=== PATIENT | female | born 1955 | race Caucasian/White ===

== ENCOUNTER 2021-03-29 17:55 | Inpatient (IN) | payer MEDICARE, OTHER ==
[~2021-03-29] VITALS: Ht 167.6 cm; Wt 101.2 kg
[2021-03-29 17:50] VITALS: BP 133/74
[2021-03-29 19:41] VITALS: BP 94/41
[2021-03-29] MEDS ORDERED: RANO500T2 PO (21:07)
[2021-03-29] MEDS ORDERED: CLOP75TA PO (21:07)
[2021-03-29] MEDS ORDERED: ISOS20TA4 PO (21:07)
[2021-03-29] MEDS ORDERED: ATOR10TA60 PO (21:07)
[2021-03-29] MEDS ORDERED: POTA20TA4 PO (21:07)
[2021-03-29] MEDS ORDERED: NITR0.4T22 SL (21:07)
[2021-03-29] MEDS ORDERED: LIDO700A21 TP (21:07)
[2021-03-29] MEDS ORDERED: TORS10TA3 PO (21:07)
[2021-03-29] MEDS ORDERED: METO-239 PO (21:07)
[2021-03-29 23:55] VITALS: BP 84/50
[2021-03-30] MEDS ORDERED: 0.9 % SODIUM CHLORIDE 10 ML DISP.SYRIN. IV PRN (02:30)
[2021-03-30] MEDS ORDERED: ONDANSETRON PF 4 MG/2 ML VIAL. IVP PRN (02:30)
[2021-03-30] MEDS ORDERED: DEXTROSE 50% 25 GM / 50ML DISP.SYRIN. IV PRN (02:45)
[2021-03-30 03:06] VITALS: BP 90/44
[2021-03-30 07:00] VITALS: BP 92/43
[2021-03-30] MEDS: INSULIN LISPRO 300 UNITS/3 ML VIAL. SQ SCH ×4 (07:30→20:52)
[2021-03-30 08:14] LABS: HEMATOCRIT 42.7 % (36.0-47.0); HEMOGLOBIN 14.7 g/dL (12.0-15.5); RED BLOOD COUNT 4.71 x10^6/uL (3.50-5.40); RED CELL DISTRIBUTION WIDTH 13.5 % (11.5-14.5); WHITE BLOOD COUNT 9.4 x10^3/uL (4.0-11.0)
[2021-03-30 08:42] LABS: CALCIUM 9.2 mg/dL (8.5-10.1); CREATININE 0.9 mg/dL (0.6-1.0); POTASSIUM 4.1 mmol/L (3.5-5.1)
[2021-03-30 11:00] VITALS: BP 70/59
[2021-03-30] MEDS ORDERED: METOPROLOL SUCC 24HR ER 25 MG TAB.ER.24H. PO SCH (11:00)
[2021-03-30] MEDS: RANOLAZINE 500 MG TAB.ER.12H PO SCH ×2 (11:21→20:57)
[2021-03-30] MEDS: CLOPIDOGREL BISULFATE 75 MG TABLET PO SCH (11:21)
[2021-03-30] MEDS ORDERED: IV NORMAL SALINE 500ML BAG 500 ML IV ONE (12:15)
--- NOTE | 2021-03-30 12:18 | PN ---
DATE: 03/30/2021 SUBJECTIVE: The patient is resting slightly propped up in bed, in no apparent distress. She was transferred yesterday from [facility] Emergency Room where she presented with feeling dizzy, had left-sided chest pain, shortness of breath. Her first set of cardiac enzymes showed troponin to be 0.031. Her EKG showed that she was in sinus bradycardia without any ST segment elevation. When I questioned her today, she denied any dizziness or chest pain, although she continued to have shortness of breath. PHYSICAL EXAMINATION: GENERAL: When I examined her, she looked pale, but no jaundice, cyanosis or thyromegaly. No jugular venous distention. No limb edema. VITAL SIGNS: Her heart rate was 47, blood pressure was 92/43, temperature was 95.7, respiratory rate was 18 and oxygen saturation was 100% on room air. HEAD, EYES, EARS, NOSE, AND THROAT: Normocephalic, atraumatic. NECK: Supple. HEART: Showed normal first and second heart sounds, no gallop, rub or murmur. CHEST: Clear to auscultation. No crepitation or rhonchi. ABDOMEN: Distended, soft, nontender. NEUROLOGIC: She is awake, alert, responding appropriately. Cranial nerves intact. She moves extremities without difficulty. LABORATORY DATA: This morning showed a white cell count 9400, hemoglobin 14, hematocrit 42, MCV 91, and platelet count of 220,000. Her chemistry showed a serum sodium 141, potassium 4.1, chloride 106, bicarbonate 27, anion gap of 8, BUN 15, creatinine was 0.9. Estimated GFR was 63 mL per minute. Her glucose was 90, calcium was 9.2. Her troponin high sensitivity is 160 with the normal range between 4-50 ng/mL. ASSESSMENT: In summary, this is a 66-year-old female patient who was admitted with non-ST segment elevation myocardial infarction. She does have a history of angioplasty and stent deployment x2, hypertension, hyperlipidemia, morbid obesity, obstructive sleep apnea. She continues to smoke and she claims that she was told she has atrial fibrillation before. PLAN: My plan is obviously to reconcile all her medication and consult the Cardiology team for further evaluation and treatment. VERONICA DR: Michael TID: [id number]
--- NOTE | 2021-03-30 12:28 | PDOC2 ---
ANAMARIA STALLINGS BULK SAUSAGE CASING TIER OFF 03/30/21 1228: CARDIAC CONSULT DATE OF CONSULT Date of Consult DATE: 03/30/21 TIME: 12:24 REASON FOR CONSULT Reason for Consult: Chest pain REFERRING PHYSICIAN Referring Physician: Dr. Shell SOURCE Source: Chart review, Patient HISTORY OF PRESENT ILLNESS HISTORY OF PRESENT ILLNESS This is a 66 yo female who presented initially to [facility] secondary to dizziness and shortness of breath. Troponin noted to be mildly elevated. Patient requesting to be transferred to [facility], but no beds available and she was transferred to [facility] for further evaluation and treatment. Patient reports week long history of dizziness. Usually occurs with position change. Has developed some shortness of breath over the last couple of days. Report chronic chest pain, no worse than usual recently. Reports h/o CAD s/p PCI/stents. Also reports small vessel disease that is not amendable to PCI. Is on Imdur and Ranexa. Follows with Dr. Franklin. Reports last cath in 2019 and had stress test last year. No echo within the last 6 months. Reports significant stressors at home. Cares for is Alzheimer's Disease. PAST MEDICAL HISTORY Cardiovascular: CAD, CHF, HTN, Hyperlipidemia Pulmonary: Other ([facility]) PAST SURGICAL HISTORY Past Surgical History: Other ([facility]) FAMILY HISTORY Family History: Diabetes, Heart Disease SOCIAL HISTORY Smoke: <1 pack per day ALCOHOL: none Drugs: None Lives: with Family CURRENT MEDICATIONS CURRENT MEDICATIONS Current Medications Medications (Trade) Dose Ordered Sig/John Route PRN Reason Start Time Stop Time Status Last Admin Dose Admin Clopidogrel Bisulfate (Plavix) 75 mg DAILY PO 03/30/21 11:00 03/30/21 11:21 Ranolazine (Ranexa) 500 mg BID PO 03/30/21 11:00 03/30/21 11:21 ALLERGIES ALLERGIES: Coded Allergies: Penicillins (Verified Allergy, Intermediate, 03/29/21) codeine (Verified Allergy, Intermediate, 03/29/21) hydrocodone (Verified Allergy, Intermediate, 03/29/21) metformin (Verified Allergy, Intermediate, 03/29/21) shrimp (Verified Allergy, Intermediate, 03/29/21) ROS Review of System 14 point ROS conducted with pertinent positives noted above in HPI PHYSICAL EXAM General: Alert, Oriented X3, Cooperative, No acute distress HEENT: Atraumatic, Mucous membr. moist/pink Lungs: Clear to auscultation Heart: Regular rate Abdomen: Soft, No tenderness Extremities: No edema, Normal pulses Skin: No significant lesion Neuro: Normal speech, Sensation intact Psych/Mental Status: Mental status NL, Mood NL MUSCULOSKELETAL: Osteoarthritic changes both hands VITALS/I&O VITALS/I&O: Vital Signs Date Time Temp Pulse Resp B/P (MAP) Pulse Ox O2 Delivery O2 Flow Rate FiO2 03/30/21 11:21 47 92/43 03/30/21 08:00 Room Air 03/30/21 07:00 95.6 18 100 95.6 I & O 03/29/21 03/29/21 03/30/21 15:00 23:00 07:00 Intake Total 500 ml Output Total 150 ml 675 ml Balance -150 ml -175 ml LABS Lab: Laboratory Tests Test 03/30/21 07:25 White Blood Count 9.4 x10^3/uL (4.0-11.0) Red Blood Count 4.71 x10^6/uL (3.50-5.40) Hemoglobin 14.7 g/dL (12.0-15.5) Hematocrit 42.7 % (36.0-47.0) Mean Corpuscular Volume 91 fL (79-100) Mean Corpuscular Hemoglobin 31 pg (25-35) Mean Corpuscular Hemoglobin Concent 34 g/dL (31-37) Red Cell Distribution Width 13.5 % (11.5-14.5) Platelet Count 220 x10^3/uL (140-400) Sodium Level 141 mmol/L (136-145) Potassium Level 4.1 mmol/L (3.5-5.1) Chloride Level 106 mmol/L (98-107) Carbon Dioxide Level 27 mmol/L (21-32) Anion Gap 8 (6-14) Blood Urea Nitrogen 15 mg/dL (7-20) Creatinine 0.9 mg/dL (0.6-1.0) Estimated GFR (Cockcroft-Gault) 63.0 Glucose Level 90 mg/dL (70-99) Calcium Level 9.2 mg/dL (8.5-10.1) Troponin I High Sensitivity 163 ng/L (4-50) H Laboratory Tests 03/30/21 07:25 Laboratory Tests 03/30/21 07:25 ASSESSMENT/PLAN ASSESSMENT/PLAN 1. Dizziness, hypotension. s/p IVFs 2. Sinus bradycardia; lowest 40. no pauses 3. Chest pain with chronic angina. on Imdur and Ranexa. High sensit troponin 163. EKG without significant acute changes 4. Mild troponin elevation; possible type II, demand ischemia. 5. CAD s/p PCI/stents x2. Reportedly with known small vessel disease and stenosis not amendable to PCI per [facility] 03/2019. Follows with Dr. Franklin. 6. Chronic diastolic CHF; appears compensated 7. Hyperlipidemia; statin 8. Tobaccoism; discusses/encouraged cessation Recommendations Discontinue metoprolol Secondary prevention including ASA/Plavix, and high-dose statin therapy Will hold Imdur with hypotension Monitor tele Check orthos Repeat trop to note peak Echo to assess LV systolic function Obtain cardiac records from Dr. Franklin Probable outpatient ischemic evaluation Supportive care Further pending above. KEL ARNDT MD 03/30/21 7538: CARDIAC CONSULT ASSESSMENT/PLAN ASSESSMENT/PLAN Agree with above CFA note. Chart reviewed. We will repeat troponin. Obtain EKG. Awaiting OSH records. She is COVID+, will repeat lab study Thanks ANAMARIA STALLINGS APRN Mar 30, 2021 12:28 KEL ARNDT MD Mar 30, 2021 18:48
--- NOTE | 2021-03-30 12:43 | HP ---
DATE OF SERVICE: 03/30/2021 ADMIT DATE: 03/29/2021 HISTORY OF PRESENT ILLNESS: The patient is a 66-year-old female patient who presented to the Emergency Room of [facility] with left-sided chest pain that has been intermittent for almost a week and the pain does not radiate. She takes baby aspirin daily. No alleviating factor. The patient reports that with chest pain, she also experienced some shortness of breath and feeling dizzy. Denied any cough, fever, nausea, vomiting or syncope. 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 She has a history of angina and does take nitro at home, but did not take any. She reports a history of hypertension, high cholesterol and has had 2 stents placed, 1 apparently in [facility] and the other 1 while in [place] in 2016. She also claims that she has also atrial fibrillation, obstructive sleep apnea, and generalized osteoarthritis. She was evaluated in the Emergency Room of [facility] and has had lab work, EKG and imaging studies. Her EKG showed that she was in sinus rhythm at a rate of 52 beats per minute, corrected QT interval of 376 milliseconds, no STEMI. She had another EKG, which showed that she was in sinus bradycardia with a heart rate of 48, no STEMI. On portable chest x-ray, there are prominent interstitial markings bilaterally, which are nonspecific, but could represent interstitial pneumonitis or edema. The cardiac silhouette and pulmonary vasculature within normal limits. There is no focal consolidation, pleural effusion or pneumothorax. The patient had lab work, which basically showed that her first set of cardiac enzymes showed troponin to be 0.031, and given her history and recurrent episode of chest pain, a decision was made to transfer her to [facility] for further evaluation and to consult the supervisor hot strip mill. PAST MEDICAL HISTORY: Significant for hypertension, hyperlipidemia, coronary artery disease, status post stent deployment, the first one in [address] Franklin at [facility] and the second one was in 2017 that was done while she was residing at [place]. According to her, she has also had a history of hyperlipidemia, hypertension, type 2 diabetes, chronic obstructive pulmonary disease. PAST SURGICAL HISTORY: Significant for angioplasty with stent deployment x 2, , total abdominal hysterectomy and bilateral salpingo-oophorectomy. ALLERGIES: SHE IS ALLERGIC TO PENICILLIN, CODEINE, HYDROCODONE, METFORMIN, MORPHINE, AND SHRIMP. MEDICATIONS: She is currently on the following medication: She is on Plavix 75 mg once a day, Ranexa 500 mg twice a day, atorvastatin calcium 10 mg at bedtime. She is on isosorbide dinitrate 40 mg twice a day, nitroglycerin 0.4 mg sublingually every 5 minutes, metoprolol succinate 25 mg once a day, potassium chloride 20 mEq once a day, torsemide 10 mg once a day, and Lidoderm patch topically once a day. FAMILY HISTORY: She has 3 sisters, 1 brother, still alive and younger. Her older brother at age of 48 with massive myocardial infarction. Two of her sisters are twin, one of them has cancer. Her younger brother has bronchial asthma. Her father at age of 84, the cause of is unknown. Mother at age of 42 because of severe bronchial asthma. SOCIAL HISTORY: She is , has 3 sons and 1 daughter. She continues to smoke half a pack a day. She does not drink alcohol or use recreational drugs. She is retired and currently taking care of her who was demented and she is under a lot of stress according to her. REVIEW OF SYSTEMS: As per history of present illness. PHYSICAL EXAMINATION: GENERAL: On arrival to the Emergency Room, she looked well and was clearly in no apparent respiratory distress. No pallor, jaundice, cyanosis or thyromegaly. No jugular venous distention. No lower limb edema. VITAL SIGNS: Her heart rate was 60, blood pressure was 111/64, temperature was 98.2, respiratory rate was 16, and oxygen saturation was 98% on room air. HEAD, EYES, EARS, NOSE, AND THROAT: Normocephalic, atraumatic. NECK: Supple. HEART: Showed normal first and second heart sounds. No gallop, rub or murmur. CHEST: Clear to auscultation, no crepitation or rhonchi. ABDOMEN: Distended, soft, nontender. NEUROLOGIC: She was grossly intact. LABORATORY DATA: Showed a white cell count of 10,000, hemoglobin 13, hematocrit 40, MCV 92, and platelet count 227,000 with normal manual differential. Her chemistry showed a serum sodium 140, potassium 4.6, chloride 104, bicarbonate 28, anion gap of 8, BUN 16, creatinine 0.9, estimated GFR was 63 mL per minute, her glucose was 90, calcium was 9.3. Total bilirubin, AST, ALT, alkaline phosphatase were normal. Her first troponin was 0.031. Total protein 6.9, albumin was 3.7. ASSESSMENT AND PLAN: The patient was transferred to [facility]. Given her history of 2 stents before and she continues to smoke, she has multiple risk factors for coronary artery disease. We will reconcile all her medications and consult the Cardiology team for further evaluation and treatment. We will obviously repeat at least 2 more sets of cardiac enzyme. FRANCESCO/NIMO DR: Michael TID: [id number]
--- NOTE | 2021-03-30 12:44 | NUR ---
SS following for discharge planning. SS reviewed pt chart and discussed with pt RN. Pt is from home with spouse and is currently on room air. Cardiology consulted. SS will continue to follow for discharge planning.
[2021-03-30] MEDS: ASPIRIN ENTERIC COATED 81 MG TABLET.DR. PO SCH (13:22)
[2021-03-30 15:00] VITALS: BP 91/66
[2021-03-30 19:00] VITALS: BP 110/54
[2021-03-30] MEDS ORDERED: ATORVASTATIN CALCIUM 40 MG TABLET. PO SCH (21:00)
[2021-03-30] MEDS ORDERED: ATORVASTATIN CALCIUM 10 MG TABLET. PO SCH (21:00)
[2021-03-30 23:00] VITALS: BP 112/50
[2021-03-31 02:43] VITALS: BP_SYST 124; BP_SYST 126; BP_DIAS 63; BP_DIAS 65
[2021-03-31 04:54] LABS: CALCIUM 8.9 mg/dL (8.5-10.1); CREATININE 0.8 mg/dL (0.6-1.0); GFR 72.2; POTASSIUM 3.7 mmol/L (3.5-5.1)
[2021-03-31 04:57] LABS: CHOLESTEROL/HDL RATIO 3.5
[2021-03-31 07:00] VITALS: BP 111/46
[2021-03-31] MEDS: INSULIN LISPRO 300 UNITS/3 ML VIAL. SQ SCH ×3 (07:30→16:30)
[2021-03-31] MEDS ORDERED: ISOSORBIDE DINITRATE 10 MG TABLET. PO SCH (09:00)
[2021-03-31] MEDS: ASPIRIN ENTERIC COATED 81 MG TABLET.DR. PO SCH (09:46)
[2021-03-31] MEDS: CLOPIDOGREL BISULFATE 75 MG TABLET PO SCH (09:46)
[2021-03-31] MEDS: RANOLAZINE 500 MG TAB.ER.12H PO SCH (09:49)
[2021-03-31 11:00] VITALS: BP 108/45
--- NOTE | 2021-03-31 12:11 | PDOC ---
CAMMIE LUDWIG BREAK OFF WORKER 03/31/21 1211: CARDIO Progress Notes Date and Time Date of Service 03/31/2021 Time of Evaluation 1150 Subjective Subjective: No Chest Pain, No shortness of breath, No Palpitations Vitals Vitals Vital Signs Date Time Temp Pulse Resp B/P (MAP) Pulse Ox O2 Delivery O2 Flow Rate FiO2 03/31/21 11:00 97.8 45 18 108/45 (66) 95 Room Air 97.8 Weight Weight [ ] Input and Output Intake and Output Intake and Output 03/31/21 07:00 Intake Total 1020 ml Balance 1020 ml Intake Oral 1020 ml # Voids 1 Laboratory Labs Laboratory Tests Test 03/30/21 17:32 03/30/21 17:50 03/30/21 20:12 03/30/21 22:30 Glucose (Fingerstick) 106 mg/dL (70-99) 132 mg/dL (70-99) SARS-CoV-2 RNA (EMILIANO) Negative (Negative) Troponin I High Sensitivity 95 ng/L (4-50) Test 03/31/21 04:15 Sodium Level 140 mmol/L (136-145) Potassium Level 3.7 mmol/L (3.5-5.1) Chloride Level 106 mmol/L (98-107) Carbon Dioxide Level 27 mmol/L (21-32) Anion Gap 7 (6-14) Blood Urea Nitrogen 17 mg/dL (7-20) Creatinine 0.8 mg/dL (0.6-1.0) Estimated GFR (Cockcroft-Gault) 72.2 Glucose Level 88 mg/dL (70-99) Calcium Level 8.9 mg/dL (8.5-10.1) Triglycerides Level 87 mg/dL (0-150) Cholesterol Level 123 mg/dL (0-200) LDL Cholesterol, Calculated 71 mg/dL (0-100) VLDL Cholesterol, Calculated 17 mg/dL (0-40) Non-HDL Cholesterol Calculated 88 mg/dL (0-129) HDL Cholesterol 35 mg/dL (40-60) Cholesterol/HDL Ratio 3.5 Physical Exam HEENT: Neck Supple W Full Motion Chest: Symmetric LUNGS: Clear to Auscultation Heart: S1S2, RRR (SR) Abdomen: Soft N/T Extremities: No Calf Tenderness Neurology: alert, oriented, follow commands Assessment Assessment 1. Dizziness: possibly from dehydration, none further, no arrhythmias 2. Sinus bradycardia; lowest 40. no pauses 3. Chest pain with chronic angina. on Imdur and Ranexa. Trop I peaked 163. EKG without significant acute changes 4. Mild troponin elevation; possible type II, demand ischemia. 5. CAD s/p PCI/stents x2. Reportedly with known small vessel disease and stenosis not amendable to PCI per [facility] 03/2019. Follows with Dr. Franklin. 6. Chronic diastolic CHF; appears compensated 7. Hyperlipidemia; statin 8. Tobaccoism; discusses/encouraged cessation 9. Covid-19: PCR+? at [facility]. unvaccinated Recommendations Discontinue metoprolol Secondary prevention including ASA/Plavix, and high-dose statin therapy Will hold Imdur with BP at low end Cardiac records from Dr. Franklin not available Supportive care Covid-19 PCR repeat pending Limited TTE, if no significant changes then potentially DC today. No recurrence of CP, will need to follow up with cardiology and will need outpt stress test. Justicifation of Admission Dx: Justifications for Admission: Justification of Admission Dx: Yes KEL ARNDT MD 03/31/21 1635: CARDIO Progress Notes Plan Plan Patient seen and examined. Agree with above nurse practitioner note. I had a long discussion today with the patient regarding further evaluation for elevated troponin and chest pain. She is currently not inclined to have any fur ther testing done here. She understands the risks and benefits. She wishes to follow-up with her primary care physician. She has ultimately agreed to a echocardiogram to ensure stable LV function. I have advised her to follow-up as soon as possible with her primary tube room supervisor. CAMMIE LUDWIG APRN Mar 31, 2021 12:11 KEL ARNDT MD Mar 31, 2021 16:35
[2021-03-31 15:00] VITALS: BP 128/77
[2021-03-31] MEDS ORDERED: ASPI-630 PO (18:13)
--- NOTE | 2021-03-31 18:13 | CARD ---
MR#: [id number] Date of Study: 03/31/2021 Ordering Physician: CAMMIE LUDWIG, Referring Physician: CAMMIE LUDWIG Tech: Graham Contreras [facility] APPROVED REPORT EXAM: Two-dimensional and M-mode echocardiogram with Doppler and color Doppler. Other Information Quality : AverageHR: 46bpm Rhythm : Bradycardia INDICATION Cardiac Disease: CAD Congestive Heart Failure RISK FACTORS Obesity 2D DIMENSIONS Left Atrium(2D)4.1 (1.6-4.0cm)IVSd1.2 (0.7-1.1cm) Aortic Root(2D)3.0 (2.0-3.7cm)LVDd4.7 (3.9-5.9cm) LVOT Diameter1.9 (1.8-2.4cm)PWd1.2 (0.7-1.1cm) LVDs2.9 (2.5-4.0cm)FS (%) 39.0 % SV72.8 ml Aortic Valve AoV Peak Eddie.171.5cm/sAoV VTI37.9cm AO Peak GR.11.8mmHgLVOT Peak Eddie.137.6cm/s AO Mean GR.6mmHgAVA (VMAX)2.28cm2 Mitral Valve MV E Nwzrefyl99.3cm/sMV E Peak Gr.2mmHg MV DECEL [id number] A Aksnwgjy61.8cm/s MV E Mean Gr.1mmHgE/A Ratio0.9 Pulmonary Valve PV Peak Vnjuvawd50.0cm/s Tricuspid Valve TR P. Kfiymzdi028ra/sTR Peak Gr.17mmHg Pulmonary Vein S1 Uovkovvx86.9cm/sD2 Idhyskts34.9cm/s LEFT VENTRICLE The left ventricle is normal size. There is borderline to mild concentric left ventricular hypertroph y. The left ventricular systolic function is normal and the ejection fraction is within normal range. Left ventricular ejection fraction is 55 to 60%. There is normal LV segmental wall motion. Transmitr al Doppler flow pattern is Grade I-abnormal relaxation pattern. No left ventricle thrombus noted on t his study. There is no ventricular septal defect visualized. There is no left ventricular aneurysm. T here is no mass noted in the left ventricle. RIGHT VENTRICLE The right ventricle is normal size. There is normal right ventricular wall thickness. The right ventr icular systolic function is normal. ATRIA The left atrium is mildly dilated. The right atrium size is normal. The interatrial septum is intact with no evidence for an atrial septal defect or patent foramen ovale as noted on 2-D or Doppler imagi ng. AORTIC VALVE The aortic valve is mildly sclerotic. The aortic valve is trileaflet. Doppler and Color Flow revealed no significant aortic regurgitation. There is no significant aortic valvular stenosis. There is no a ortic valvular vegetation. MITRAL VALVE The mitral valve is normal in structure and function. There is no evidence of mitral valve prolapse. There is no mitral valve stenosis. Doppler and Color-flow revealed trace mitral regurgitation. TRICUSPID VALVE The tricuspid valve is normal in structure and function. Doppler and Color Flow revealed no tricuspid valve regurgitation noted. There is no tricuspid valve prolapse or vegetation. There is no tricuspid valve stenosis. PULMONIC VALVE The pulmonary valve is normal in structure and function. Doppler and Color Flow revealed no pulmonic valvular regurgitation. There is no pulmonic valvular stenosis. GREAT VESSELS The aortic root is normal in size. The ascending aorta is normal in size. The pulmonary artery is nor mal. The IVC is normal in size and collapses >50% with inspiration. PERICARDIAL EFFUSION There is no pleural effusion. There is no evidence of significant pericardial effusion. Critical Notification Critical Value: No <Conclusion> The left ventricle is normal size. The left ventricular systolic function is normal and the ejection fraction is within normal range. Left ventricular ejection fraction is 55 to 60%. There is borderline to mild concentric left ventricular hypertrophy. Doppler and Color Flow revealed no significant aortic regurgitation. There is no significant aortic valvular stenosis. Doppler and Color-flow revealed trace mitral regurgitation. Doppler and Color Flow revealed no tricuspid valve regurgitation noted. Signed by : Andrea Luciano MD Electronically Approved : 03/31/2021 18:13:17
== END 2021-03-31 20:00 | disposition home or self-care (01) | DRG 281 ==
LOC: 6 SOUTH 17:55
PROVIDERS: ADMIT Internal Medicine; ATTEND Internal Medicine
DX: I21.4 Non-ST elevation (NSTEMI) myocardial infarction (principal); I50.32 Chronic diastolic (congestive) heart failure; E11.9 Type 2 diabetes mellitus without complications; E78.00 Pure hypercholesterolemia, unspecified; E78.5 Hyperlipidemia, unspecified; F02.80 Dementia in other diseases classified elsewhere, unspecified severity, without behavioral disturbance, psychotic disturbance, mood disturbance, and anxiety; F17.210 Nicotine dependence, cigarettes, uncomplicated; G30.9 Alzheimer's disease, unspecified; I11.0 Hypertensive heart disease with heart failure; I25.119 Atherosclerotic heart disease of native coronary artery with unspecified angina pectoris; J44.9 Chronic obstructive pulmonary disease, unspecified; I48.91 Unspecified atrial fibrillation; Z20.822 Contact with and (suspected) exposure to COVID-19; E66.01 Morbid (severe) obesity due to excess calories; G47.33 Obstructive sleep apnea (adult) (pediatric); G89.29 Other chronic pain; Z88.8 Allergy status to other drugs, medicaments and biological substances; Z88.5 Allergy status to narcotic agent; Z91.010 Allergy to peanuts; Z79.82 Long term (current) use of aspirin; Z82.49 Family history of ischemic heart disease and other diseases of the circulatory system; Z82.5 Family history of asthma and other chronic lower respiratory diseases; Z83.3 Family history of diabetes mellitus; Z90.710 Acquired absence of both cervix and uterus; Z95.5 Presence of coronary angioplasty implant and graft
CPT/HCPCS: 36415; 80048; 80061; 82962; 84484; 85027; 93308; J1815; J7040; U0003; U0005; G0378